=== PATIENT | male | born 1940 | race Caucasian/White ===

== ENCOUNTER 2017-01-11 16:35 | Emergency (ER) | payer MEDICARE | END 2017-01-11 21:25 | disposition home or self-care (01) | LOC: ER1 16:35 | DX: Z53.21 Procedure and treatment not carried out due to patient leaving prior to being seen by health care provider (principal) | CPT/HCPCS: 93005 ==

== ENCOUNTER → 2021-09-19 | Outpatient (CLI) | payer OTHER ==
[~2021-09-19] MED LIST: ACCUPRIL40 MG PO; ACTOS30 MG PO; ALLEGRA ALLERG180 MG PO; AMARYL4 MG PO; ASPIRIN EC81 MG PO; CARDURA 2MG TAB2 MG PO; DOXAZOSIN MESYLA2 MG PO; DOXYCYCLINE HY100 M2 PO; ENTRESTO 24 MG1 EACH PO; FEOSOL325 MG PO; FLEXERIL 10 MG10 MG PO; GLUCOPHAGE1000 MG PO; IMDUR ER TAB 3030 MG PO; LANTUS SOL100 UNIT/1 SQ; LASIX20 MG PO; LIDODERM PATCH 5% EXT; LIDOPATCH1 EACH TP; LISINOPRIL10 MG PO; MELATONIN5 M2 PO; MICRO-K EXTENCA8 MEQ PO; NEXIUM20 MG PO; OMNICEF 300 MG300 MG PO; POLYMYXIN B-TMP10 ML OP; POTASSIUM CHLO10 ME1 PO; PREDFORTE OP SUS5 ML OU; PROTONIX40 MG PO; PROVENTIL HFA6.7 GM INH; QUINAPRIL HCL40 MG PO; RANITIDINE HCL150 MG PO; SINGULAIR10 MG PO; SYMBICORT 80-41 INHA INH; TOBREX 0.3% OU; TOPROL XL50 MG PO; ULTRAM50 MG PO; ZOCOR40 MG PO; [UNRECOGNIZED DRUG - OTHER] OU
== END ==
LOC: HEART 5 09:19
DX: I25.5 Ischemic cardiomyopathy (principal); I37.1 Nonrheumatic pulmonary valve insufficiency
CPT/HCPCS: 93306

== ENCOUNTER → 2021-09-20 | Outpatient (CLI) | payer OTHER ==
[2021-09-20 10:54] LABS: HEMOGLOBIN 9.2 gm/dl (14.0-17.5); RED BLOOD COUNT 5.39 M/UL (4.20-5.50); WHITE BLOOD COUNT 7.7 K/UL (4.5-11.0)
== END ==
LOC: LAB 10:34
PROVIDERS: Internal Medicine Cardiovascular Disease
DX: I50.22 Chronic systolic (congestive) heart failure (principal); I45.4 Nonspecific intraventricular block; I25.5 Ischemic cardiomyopathy
CPT/HCPCS: 80048; 85025

== ENCOUNTER → 2021-09-20 | Outpatient (CLI) | payer OTHER | LOC: EXRD 09:59 | DX: I25.5 Ischemic cardiomyopathy (principal); I45.4 Nonspecific intraventricular block; I50.22 Chronic systolic (congestive) heart failure; R91.8 Other nonspecific abnormal finding of lung field | CPT/HCPCS: 71046 ==

== ENCOUNTER 2021-09-22 06:34 | Outpatient (CLI) | payer OTHER ==
[~2021-09-22] VITALS: Ht 182.9 cm; Wt 83.9 kg
[2021-09-22] MEDS ORDERED: CITALOPRAM HBR20 MG PO (08:06)
[2021-09-22] MEDS ORDERED: CLORAZEPATE D3.75 MG PO (08:06)
[2021-09-22] MEDS ORDERED: ZAROXOLYN/DIULO5 MG PO (08:07)
[2021-09-22] MEDS ORDERED: HYDROCODON-ACE1 EAC4 PO (12:04)
[2021-09-22] MEDS ORDERED: CLINDAMYCIN HC300 MG PO (12:04)
[2021-09-22] MEDS ORDERED: LEVOFLOXACIN500 MG PO (12:04)
--- NOTE | 2021-09-23 04:58 | NUR ---
AT APPROXIMATELY 0245, PATIENT RANG OUT AND STATED HE WAS SICK TO HIS STOMACH. PHENERGAN ORDERED FROM PHARMACY AND SENT TO UNIT; ADMINISTERED TO PATIENT AT 0300. PATIENT STATES HE FEELS MUCH BETTER NOW AND IS RESTING WELL WITH CALL RAMÍREZ IN [place].
== END 2021-09-23 09:24 | disposition home or self-care (01) ==
LOC: CATH 06:34 → PROG CARE 15:17 → CATH 09-23 09:24
DX: I11.0 Hypertensive heart disease with heart failure (principal); I50.22 Chronic systolic (congestive) heart failure; I25.5 Ischemic cardiomyopathy; I45.4 Nonspecific intraventricular block; I25.10 Atherosclerotic heart disease of native coronary artery without angina pectoris; I27.20 Pulmonary hypertension, unspecified; J44.9 Chronic obstructive pulmonary disease, unspecified; I25.2 Old myocardial infarction; E11.9 Type 2 diabetes mellitus without complications; E78.5 Hyperlipidemia, unspecified; D50.9 Iron deficiency anemia, unspecified; Z95.818 Presence of other cardiac implants and grafts; Z87.891 Personal history of nicotine dependence; Z20.822 Contact with and (suspected) exposure to COVID-19; Z88.8 Allergy status to other drugs, medicaments and biological substances; Z79.4 Long term (current) use of insulin; Z79.82 Long term (current) use of aspirin; Z79.899 Other long term (current) drug therapy; Z82.49 Family history of ischemic heart disease and other diseases of the circulatory system
CPT/HCPCS: 33225; 33249; 71045; 82962; 93005; 93641; 94760; 99152; 99153; C1769; C1777; C1882; C1898; C1900; J1644; J2250; J2550; J3010; J3370; J7040; J7050; J7070; Q9965; U0002

== ENCOUNTER 2022-06-11 14:32 | Inpatient (IN) | payer OTHER ==
[~2022-06-11] VITALS: Ht 182.9 cm; Wt 83.9 kg
[~2022-06-11 14:32] MED LIST changes: +CITALOPRAM HBR20 MG PO; +CLINDAMYCIN HC300 MG PO; +CLORAZEPATE D3.75 MG PO; -GLUCOPHAGE1000 MG PO; +HYDROCODON-ACE1 EAC4 PO; +LEVOFLOXACIN500 MG PO; +METFORMIN HCL1000 MG PO; +ZAROXOLYN/DIULO5 MG PO
[2022-06-11 15:40] LABS: RED BLOOD COUNT 5.37 M/UL (4.20-5.50); WHITE BLOOD COUNT 25.9 K/UL (4.5-11.0)
[2022-06-11 16:17] LABS: BUN/CREATININE RATIO 28 (0-10)
[2022-06-12 03:34] LABS: HEMOGLOBIN 9.8 gm/dl (14.0-17.5); RED BLOOD COUNT 4.45 M/UL (4.20-5.50); WHITE BLOOD COUNT 12.4 K/UL (4.5-11.0)
[2022-06-12] MEDS ORDERED: OMNICEF 300 MG300 MG PO (17:03)
[2022-06-12] MEDS ORDERED: DOXYCYCLINE HY100 MG PO (17:03)
[2022-06-12] MEDS ORDERED: AMARYL4 MG PO (17:23)
[2022-06-12] MEDS ORDERED: ENTRESTO 24 MG1 EACH PO (17:47)
[2022-06-12] MEDS ORDERED: ZAROXOLYN/DIULO5 MG PO (17:48)
[2022-06-12] MEDS ORDERED: B-121000 MCG PO (17:49)
[2022-06-13 04:57] LABS: HEMOGLOBIN 10.3 gm/dl (14.0-17.5); RED BLOOD COUNT 4.7 M/UL (4.20-5.50)
[2022-06-13 04:59] LABS: WHITE BLOOD COUNT 8.4 K/UL (4.5-11.0)
[2022-06-13] MEDS ORDERED: DOXYCYCLINE HY100 MG PO (08:53)
[2022-06-13] MEDS ORDERED: CEFDINIR300 MG PO (08:53)
== END 2022-06-13 15:46 | disposition home health service (06) | DRG 871 ==
LOC: ER1 14:32 → CDU 18:26 → M/S 18:26
PROVIDERS: Internal Medicine; Physician Assistant; ADMIT Internal Medicine
DX: A41.9 Sepsis, unspecified organism (principal); J18.9 Pneumonia, unspecified organism; J96.21 Acute and chronic respiratory failure with hypoxia; I50.22 Chronic systolic (congestive) heart failure; I13.0 Hypertensive heart and chronic kidney disease with heart failure and stage 1 through stage 4 chronic kidney disease, or unspecified chronic kidney disease; J44.0 Chronic obstructive pulmonary disease with (acute) lower respiratory infection; H91.90 Unspecified hearing loss, unspecified ear; I36.1 Nonrheumatic tricuspid (valve) insufficiency; I27.20 Pulmonary hypertension, unspecified; Z66 Do not resuscitate; I25.10 Atherosclerotic heart disease of native coronary artery without angina pectoris; E11.9 Type 2 diabetes mellitus without complications; J44.9 Chronic obstructive pulmonary disease, unspecified; Z20.822 Contact with and (suspected) exposure to COVID-19; F17.210 Nicotine dependence, cigarettes, uncomplicated; I25.5 Ischemic cardiomyopathy; E87.6 Hypokalemia; E78.5 Hyperlipidemia, unspecified; D53.9 Nutritional anemia, unspecified; N18.30 Chronic kidney disease, stage 3 unspecified; D72.829 Elevated white blood cell count, unspecified; E86.0 Dehydration; Z85.828 Personal history of other malignant neoplasm of skin; Z88.8 Allergy status to other drugs, medicaments and biological substances; Z95.810 Presence of automatic (implantable) cardiac defibrillator; Z99.81 Dependence on supplemental oxygen; Z95.5 Presence of coronary angioplasty implant and graft; Z90.49 Acquired absence of other specified parts of digestive tract; Z98.41 Cataract extraction status, right eye; Z98.42 Cataract extraction status, left eye; Z88.5 Allergy status to narcotic agent; Z82.49 Family history of ischemic heart disease and other diseases of the circulatory system; Z83.3 Family history of diabetes mellitus; Z79.899 Other long term (current) drug therapy
CPT/HCPCS: 36415; 36600; 71045; 80053; 80202; 81001; 82550; 82553; 82728; 82803; 82962; 83540; 83550; 83605; 83735; 83880; 84132; 84484; 85025; 85027; 87040; 93005; 96374; 96375; 97161; 97165; 99285; J0692; J2405; J2543; J3370; J3475; J7070; U0002